=== PATIENT | male | born 1970 | race Caucasian/White ===

== ENCOUNTER 2022-09-18 07:16 | Emergency (ER) | payer OTHER ==
[2022-09-18 07:42] VITALS: BP 121/78; PULSE 84; RESP 18; TEMP 98.4; BMI 29.8
== END 2022-09-18 08:30 | disposition home or self-care (01) ==
LOC: JERFT 07:16 → JER 07:16 → JERFT 08:30
DX: Z48.02 Encounter for removal of sutures (principal)
CPT/HCPCS: 99281-25

== ENCOUNTER 2024-07-04 15:23 | Inpatient (IN) | payer OTHER ==
[2024-07-04 16:27] LABS: HEMOGLOBIN 6.1 g/dL (13.7-17.5); MCHC 33.9 g/dl (32.3-36.5); MEAN CELL VOLUME 111.8 fl (79.0-92.2); MEAN PLT VOLUME 10.2 fl (9.4-12.4); PLATELET COUNT 77 x10^3/uL (163-337)
[2024-07-04 16:32] LABS: INR 3.36 (0.83-1.09); PROTHROMBIN TIME (PATIENT) 36.6 SEC (9.7-13.0)
[2024-07-04 16:34] LABS: ACTIVATED PTT 35.4 SECONDS (25.2-36.5)
[2024-07-04 16:52] LABS: CHLORIDE 77 mmol/L (98-107); POTASSIUM 4.1 mmol/L (3.5-5.1)
[2024-07-04 16:55] LABS: ALBUMIN 1.5 g/dl (3.4-5.0); BLOOD UREA NITROGEN 11.4 mg/dL (7-18); CO2 17 mmol/L (21-32); GLUCOSE,RANDOM 72 mg/dL (74-106); MAGNESIUM 2.3 mg/dL (1.8-2.4)
[2024-07-04 16:58] LABS: CREATININE 0.9 mg/dL (0.55-1.3); SGOT/AST 322 U/L (15-37); SGPT/ALT 98 U/L (13-61)
[2024-07-04 16:59] LABS: PHOSPHOROUS 2.9 mg/dL (2.5-4.9)
[2024-07-04 17:00] LABS: BILIRUBIN,TOTAL 11.5 mg/dL (0.2-1); TOT PROT 5.9 g/dl (6.4-8.2)
[2024-07-04 17:02] LABS: ALK PHOS 178 U/L (45-117); ANION GAP 18 mmol/L (4-13); SODIUM 112 mmol/L (136-145)
[2024-07-04 17:03] LABS: N-TERMINAL BNP 359.8 pg/ml (5-125)
[2024-07-04] MEDS ORDERED: PANTOPRAZOLE SODIUM 40 MG VIAL ONE (17:05)
[2024-07-04] MEDS: PANTOPRAZOLE SODIUM 40 MG VIAL IVPUSH ONE (17:12)
[2024-07-04 17:18] LABS: LACTIC ACID 9.2 mmol/L (0.4-2.0)
[2024-07-04] MEDS: SODIUM CHLORIDE 3% 500 ML/500 ML INFUS.BAG IV ONE ×2 (17:54→22:29)
[2024-07-04 18:06] LABS: BILIRUBIN,DIRECT 5.8 mg/dL (0.0-0.2)
[2024-07-04 18:07] LABS: SODIUM 113 mmol/L (136-145)
[2024-07-04] MEDS ORDERED: NOREPINEPHRINE 0.9 % NACL 8 MG/250 ML BAG IVPB ONE (18:14)
[2024-07-04] MEDS: NOREPINEPHRINE 0.9 % NACL 8 MG/250 ML BAG IVPB SCH (18:15)
[2024-07-04] MEDS ORDERED: NOREPINEPHRINE BITARTRATE 4,000 MCG in DEXTROSE 5%-WATER - 496 ML IV SCH (18:30)
[2024-07-04 20:40] LABS: ARTERIAL BLD GAS O2 SATURATION 99.3 % (95-98); ARTERIAL BLOOD GAS BASE EXCESS -7.4 mmol/L (-2-2); ARTERIAL BLOOD GAS PO2 204.5 mmHg (80-100); ARTERIAL BLOOD GAS pH 7.339 (7.350-7.450)
[2024-07-04 20:44] LABS: ALLENS TEST POSITIVE
[2024-07-04 20:45] LABS: VENT RATE 12
[2024-07-04] MEDS: HYDROCORTISONE SOD SUCCINATE 100 MG/2 ML VIAL IVPUSH SCH (21:12)
[2024-07-04] MEDS: PIPERACILLIN/TAZOB 4.5 GM 4.5 GM in DEXTROSE 5%-WATER 100 ML IVPB ONE (21:12)
[2024-07-04 21:20] LABS: EPI CELLS 6 /uL (0-25.1); HYALINE CASTS 1 /uL (0-3.1); URINE APPEARANCE CLEAR; URINE BILIRUBIN 2+ (NEGATIVE); URINE COLOR DK YELLOW; URINE GLUCOSE (UA) NEGATIVE (NEGATIVE); URINE KETONE TRACE (NEGATIVE); URINE LEUK ESTERASE NEGATIVE (NEGATIVE); URINE NITRITE POSITIVE (NEGATIVE); URINE PROTEIN 1+ (NEGATIVE); URINE RBC 9 /uL (0-23.9); URINE WBC 5 /uL (0-25.8)
[2024-07-04 21:26] VITALS: BMI 35.4
[2024-07-04 21:33] LABS: URINE BACTERIA 2.8 /uL (0-1359)
[2024-07-04 21:35] LABS: CHLORIDE 78 mmol/L (98-107); POTASSIUM 4.1 mmol/L (3.5-5.1)
[2024-07-04 21:38] LABS: ANION GAP 15 mmol/L (4-13); BLOOD UREA NITROGEN 13.9 mg/dL (7-18); CALCIUM 8.3 mg/dL (8.5-10.1); CO2 20 mmol/L (21-32); GLUCOSE,RANDOM 86 mg/dL (74-106); SODIUM 113 mmol/L (136-145)
[2024-07-04] MEDS: AZITHROMYCIN IVPB 500 MG/250 ML BAG IVPB SCH (21:38)
[2024-07-04 21:40] LABS: CREATININE 0.9 mg/dL (0.55-1.3); URIC ACID 4.1 mg/dL (2.6-7.2)
[2024-07-04 22:21] LABS: LACTIC ACID 7.8 mmol/L (0.4-2.0)
[2024-07-04] MEDS: ALBUMIN HUMAN 25% 12.5 GM/50 ML VIAL IV SCH (22:25)
[2024-07-04] MEDS: VANCOMYCIN 1 GM PREMIX (F) 1 GM/200 ML BAG IVPB ONE (22:29)
[2024-07-04] MEDS: CHLORHEXIDINE GLUCONATE 4% CLEANSER FOR DECOLONIZATION TP SCH (22:29)
[2024-07-04] MEDS: MUPIROCIN 2% TOPICAL OINTMENT FOR DECOLONIZATION NS SCH (22:30)
[2024-07-04] MEDS: PIPERACILLIN/TAZOB 3.375 GM 50 ML IVPB SCH (22:31)
[2024-07-04] MEDS: THIAMINE HCL 200 MG/2 ML VIAL IVPB SCH (22:34)
[2024-07-04] MEDS: PHYTONADIONE 10 MG/1 ML AMP IVPB SCH (22:34)
[2024-07-04] MEDS: CALCIUM GLUCONATE IN NACL 1 GM/50 ML BAG IVPB ONE (22:34)
[2024-07-04 22:54] LABS: HEMATOCRIT 16.6 % (40.1-51.0); HEMOGLOBIN 5.7 g/dL (13.7-17.5); MCHC 34.3 g/dl (32.3-36.5); MEAN CELL VOLUME 105.7 fl (79.0-92.2); MEAN PLT VOLUME 9.2 fl (9.4-12.4); PLATELET COUNT 76 x10^3/uL (163-337); RDW 20.4 % (12.2-16.1)
[2024-07-04 23:03] LABS: URINE BARBITURATES NEGATIVE (NEGATIVE); URINE BENZODIAZEPINES NEGATIVE (NEGATIVE)
[2024-07-04 23:05] LABS: METHADONE, UR NEGATIVE (NEGATIVE); OPIATES, URI NEGATIVE (NEGATIVE); PHENCYCLIDINE,URINE NEGATIVE (NEGATIVE)
[2024-07-04 23:12] LABS: COCAINE, UR NEGATIVE (NEGATIVE); URINE AMPHETAMINES NEGATIVE (NEGATIVE)
[2024-07-04 23:26] LABS: CHLORIDE 78 mmol/L (98-107); POTASSIUM 4.1 mmol/L (3.5-5.1)
[2024-07-04 23:27] LABS: CALCIUM 8.1 mg/dL (8.5-10.1)
[2024-07-04 23:28] LABS: BLOOD UREA NITROGEN 13.6 mg/dL (7-18); CO2 19 mmol/L (21-32); GLUCOSE,RANDOM 87 mg/dL (74-106)
[2024-07-04 23:32] LABS: CREATININE 0.9 mg/dL (0.55-1.3); URIC ACID 4.2 mg/dL (2.6-7.2)
[2024-07-04 23:35] LABS: ANION GAP 16 mmol/L (4-13); SODIUM 113 mmol/L (136-145)
[2024-07-05] MEDS: VANCOMYCIN 1,000 MG in DEXTROSE 5%-WATER - 250 ML IVPB ONE (00:18)
[2024-07-05] MEDS: PANTOPRAZOLE SODIUM 40 MG VIAL IVPUSH SCH (00:54)
[2024-07-05 01:11] LABS: CALCIUM 7.7 mg/dL (8.5-10.1); CHLORIDE 78 mmol/L (98-107); CO2 21 mmol/L (21-32); GLUCOSE,RANDOM 99 mg/dL (74-106)
[2024-07-05 01:12] LABS: BLOOD UREA NITROGEN 13.4 mg/dL (7-18)
[2024-07-05 01:15] LABS: ANION GAP 14 mmol/L (4-13); SODIUM 113 mmol/L (136-145)
[2024-07-05] MEDS: SODIUM CHLORIDE 3% 500 ML/500 ML INFUS.BAG IV ONE ×4 (01:53→11:55)
[2024-07-05] MEDS: CALCIUM GLUCONATE IN NACL 1 GM/50 ML BAG IVPB ONE (01:53)
[2024-07-05 05:30] LABS: ARTERIAL BLD GAS O2 SATURATION 97.7 % (95-98); ARTERIAL BLOOD GAS PO2 108.2 mmHg (80-100); ARTERIAL BLOOD GAS pH 7.338 (7.350-7.450)
[2024-07-05 05:31] LABS: ALLENS TEST POSITIVE
[2024-07-05 05:32] LABS: VENT MODE S/T
[2024-07-05 05:33] LABS: VENT RATE 12
[2024-07-05] MEDS ORDERED: RAPID SEQUENCE INTUBATION KIT NR ONE ×2 (06:08→06:17)
[2024-07-05] MEDS: PROPOFOL 1,000,000 MCG/100 ML VIAL IVPB SCH (06:15)
[2024-07-05] MEDS ORDERED: PROPOFOL 1,000,000 MCG/100 ML VIAL ONE (06:15)
[2024-07-05] MEDS ORDERED: FENTANYL NS IVPB 500 MCG/100 ML BAG IVPB ONE (06:15)
[2024-07-05] MEDS: FENTANYL NS IVPB 500 MCG/100 ML BAG IVPB SCH (06:15)
[2024-07-05] MEDS: ROCURONIUM BROMIDE 50 MG/5 ML VIAL IV ONE (06:18)
[2024-07-05] MEDS: ETOMIDATE 40 MG/20 ML VIAL IVPUSH ONE (06:19)
[2024-07-05 06:28] LABS: CHLORIDE 82 mmol/L (98-107); POTASSIUM 4.3 mmol/L (3.5-5.1)
[2024-07-05 06:31] LABS: BLOOD UREA NITROGEN 14.2 mg/dL (7-18); CO2 24 mmol/L (21-32); GLUCOSE,RANDOM 94 mg/dL (74-106); MAGNESIUM 1.9 mg/dL (1.8-2.4)
[2024-07-05 06:34] LABS: SGPT/ALT 234 U/L (13-61)
[2024-07-05 06:35] LABS: PHOSPHOROUS 2.7 mg/dL (2.5-4.9)
[2024-07-05 06:37] LABS: ALK PHOS 168 U/L (45-117)
[2024-07-05 07:09] LABS: ALBUMIN 1.9 g/dl (3.4-5.0); ANION GAP 10 mmol/L (4-13); BILIRUBIN,TOTAL 15.1 mg/dL (0.2-1); SGOT/AST 1318 U/L (15-37); SODIUM 117 mmol/L (136-145)
[2024-07-05 09:38] LABS: HEMATOCRIT 20.3 % (40.1-51.0); HEMOGLOBIN 7.1 g/dL (13.7-17.5); MEAN CELL VOLUME 103.6 fl (79.0-92.2); MEAN PLT VOLUME 9.4 fl (9.4-12.4); PLATELET COUNT 49 x10^3/uL (163-337); RDW 22.7 % (12.2-16.1)
[2024-07-05] MEDS ORDERED: PANTOPRAZOLE SODIUM 40 MG VIAL IVPUSH SCH (10:00)
[2024-07-05] MEDS ORDERED: methylPREDNISolone NA SUCC 40 MG/1 ML VIAL IVPUSH SCH (10:00)
[2024-07-05] MEDS: PIPERACILLIN/TAZOB 3.375 GM 50 ML IVPB SCH (10:21)
[2024-07-05 10:40] LABS: BILIRUBIN,DIRECT 6.9 mg/dL (0.0-0.2)
[2024-07-05] MEDS: PHYTONADIONE 10 MG/1 ML AMP IVPB SCH (11:48)
[2024-07-05] MEDS: LACTULOSE 20 GM/30 ML UDC (FOR ORAL USE ONLY) PO PRN (11:48)
[2024-07-05] MEDS: LACTULOSE 20 GM/30 ML UDC (FOR RECTAL USE ONLY) PR SCH (11:49)
[2024-07-05] MEDS: PHYTONADIONE 10 MG/1 ML AMP IVPB ONE (11:55)
[2024-07-05] MEDS: PIPERACILLIN/TAZOB 3.375 GM 3.375 GM in DEXTROSE 5%-WATER - 50 ML IVPB SCH (11:55)
[2024-07-05 12:38] LABS: MONOCYTE # 0.22 x10^3/uL (0.30-0.82)
[2024-07-05 13:36] LABS: INR 3.15 (0.83-1.09); PROTHROMBIN TIME (PATIENT) 34.7 SEC (9.7-13.0)
[2024-07-05 13:57] LABS: CHLORIDE 84 mmol/L (98-107); POTASSIUM 4.9 mmol/L (3.5-5.1)
[2024-07-05 14:02] LABS: SODIUM 117 mmol/L (136-145)
[2024-07-05 14:13] LABS: ANION GAP 8 mmol/L (4-13); BLOOD UREA NITROGEN 16.5 mg/dL (7-18); CO2 25 mmol/L (21-32); GLUCOSE,RANDOM 82 mg/dL (74-106)
[2024-07-05 14:16] LABS: CREATININE 1.3 mg/dL (0.55-1.3)
[2024-07-05 14:56] VITALS: RESP 16
[2024-07-05] MEDS: methylPREDNISolone NA SUCC 40 MG/1 ML VIAL IVPUSH SCH (15:41)
[2024-07-05] MEDS ORDERED: VASopressin 20 UNITS/ML VIAL IV ONE (16:43)
[2024-07-05] MEDS: VASopressin 40 UNITS/100 ML BAG IV SCH (16:45)
[2024-07-05 17:10] VITALS: BP 116/36; PULSE 92; TEMP 97.6
== END 2024-07-05 18:34 | disposition short-term general hospital (02) | DRG 720 ==
LOC: JER 15:23 → JERBED 16:15 → JICU 20:12
PROVIDERS: ADMIT Internal Medicine Pulmonary Disease; ATTEND Internal Medicine Pulmonary Disease
PROC: 05HN33Z Insertion of Infusion Device into Left Internal Jugular Vein, Percutaneous Approach (ICD-10-PCS; principal; 2024-07-04)
PROC: 0BH17EZ Insertion of Endotracheal Airway into Trachea, Via Natural or Artificial Opening (ICD-10-PCS; 2024-07-05)
PROC: 5A1935Z Respiratory Ventilation, Less than 24 Consecutive Hours (ICD-10-PCS; 2024-07-05)
PROC: 0BJ08ZZ Inspection of Tracheobronchial Tree, Via Natural or Artificial Opening Endoscopic (ICD-10-PCS; 2024-07-05)
DX: A41.89 Other specified sepsis (principal); G92.8 Other toxic encephalopathy; J69.0 Pneumonitis due to inhalation of food and vomit; K72.00 Acute and subacute hepatic failure without coma; R65.21 Severe sepsis with septic shock; E87.20 Acidosis, unspecified; N17.9 Acute kidney failure, unspecified; J44.0 Chronic obstructive pulmonary disease with (acute) lower respiratory infection; D69.6 Thrombocytopenia, unspecified; J68.9 Unspecified respiratory condition due to chemicals, gases, fumes and vapors; E87.1 Hypo-osmolality and hyponatremia; K70.10 Alcoholic hepatitis without ascites; K70.30 Alcoholic cirrhosis of liver without ascites; D64.9 Anemia, unspecified; J96.01 Acute respiratory failure with hypoxia; J44.9 Chronic obstructive pulmonary disease, unspecified
CPT/HCPCS: 0241U-QW; 36415; 36430; 36600; 70450-TC; 71045-TC-FY; 76700-TC; 80048; 80053; 80307; 81003; 82140; 82248; 82803; 82962; 83605; 83735; 83880; 83930; 83935; 84100; 84295; 84439; 84443; 84478; 84484; 84550; 85025; 85027; 85384; 85610; 85730; 86900; 86922; 87040; 87070; 87086; 87205; 87899; 93005; 93010; 93306-TC; 93970-TC; 94002; 94660; 99285-25; J3490; P9012; P9017; P9038; P9047; P9058